=== PATIENT | female | born 1930 | race Caucasian/White ===

== ENCOUNTER → 2016-07-24 | Outpatient (CLI) | payer OTHER, MEDICARE ==
[~2016-07-24] MED LIST: ASPIRIN E.C.81 M1 PO; Allegra PO; BENICAR20 MG PO; CELEBREX200 MG PO; LANTUS 3 M100 UNITS/ SC; NOVOLOG PE100 UNITS/ SC; Norvasc PO; Pravachol PO; TRILIPIX135 MG PO; Tylenol Arthritis Ex PO; XALATAN 0.50 DROP/2. BOTH EYES
== END | disposition home or self-care (01) ==
DX: R26.2 Difficulty in walking, not elsewhere classified (principal); M25.561 Pain in right knee; M25.661 Stiffness of right knee, not elsewhere classified; M62.81 Muscle weakness (generalized)
CPT/HCPCS: 97110 GP; 97150 GO; 97161 GP; 97165 GO; G8978 GP; G8979 GP; G8980 GP; G8987 GO; G8988 GO; G8989 GO

== ENCOUNTER 2017-02-17 22:02 | Inpatient (IN) | payer OTHER, MEDICARE ==
[~2017-02-17] VITALS: Ht 157.5 cm; Wt 84.6 kg
[~2017-02-17 22:02] MED LIST changes: +AMBIEN10 MG PO; +CYMBALTA30 MG PO; +CYTOTEC200 MCG PO; +DITROPAN5 MG PO; -LANTUS 3 M100 UNITS/ SC; +LASIX20 MG PO; +LEVEMIR100 UNIT/2 SC; +LEVO-T25 MCG PO; +LYRICA75 MG PO; +PRAVACHOL80 MG PO; +SYSTANE 0.3-0.1 EACH BOTH EYES; +VOLTAREN50 MG PO; +XANAX0.5 MG PO
[2017-02-18 07:58] LABS: POINT-OF-CARE METER ID UU14174212
[2017-02-18 08:16] VITALS: BP 184/89
[2017-02-18 11:35] LABS: POINT-OF-CARE METER ID UU13113675
[2017-02-18 12:06] LABS: HEMATOCRIT 35.2 % (36.0-46.0); MCH 27.7 PG (29.0-34.0); MCHC 32.7 G/DL (30.0-36.0); MCV 84.8 FL (83-99); MEAN PLAT.VOLUME 11.3 uM^3 (9.5-12.4); PLATELET COUNT 218 K/uL (156-360); RBC DIS.WIDTH-CV 13.6 % (11.8-14.6); RBC DIS.WIDTH-SD 42.4 % (39-53); RED BLOOD COUNT 4.15 M/uL (3.80-5.20)
[2017-02-18 14:13] LABS: POINT-OF-CARE METER ID UU14188577
[2017-02-18 14:41] VITALS: BP 155/97
[2017-02-18 15:50] VITALS: BP 154/79
[2017-02-18 16:16] LABS: POINT-OF-CARE METER ID UU14188577
[2017-02-18 19:38] VITALS: BP 164/72
[2017-02-18 21:33] LABS: POINT-OF-CARE METER ID UU14188577
[2017-02-18 23:22] VITALS: BP 149/68
[2017-02-19 05:15] VITALS: BP 136/76
[2017-02-19 06:30] LABS: POINT-OF-CARE METER ID UU14149397
[2017-02-19 07:09] LABS: HEMATOCRIT 33.6 % (36.0-46.0)
[2017-02-19 07:25] LABS: ANION GAP 12 MEQ/L (2-14); CHLORIDE 100 MEQ/L (99-109); POTASSIUM 3.5 MEQ/L (3.7-5.4); SAMPLE HEMOLYSIS CHECK 0; SAMPLE ICTERIC CHECK 0; SAMPLE LIPEMIA CHECK 0; SODIUM 136 MEQ/L (136-147)
[2017-02-19 07:30] VITALS: BP 148/75
[2017-02-19 07:31] LABS: GFR ESTIMATE (CALCULATED) 41 mL/min/; GLUCOSE 243 mg/dL (70-99); UREA NITROGEN (BUN) 38 mg/dL (9-23)
[2017-02-19 11:38] LABS: POINT-OF-CARE METER ID UU14208753
[2017-02-19 15:45] VITALS: BP 162/92
[2017-02-19 16:30] LABS: POINT-OF-CARE METER ID UU14208753
[2017-02-19 21:21] LABS: POINT-OF-CARE METER ID UU14208753
[2017-02-19 23:28] VITALS: BP 148/89
[2017-02-20 06:36] LABS: MCV 83.8 FL (83-99)
[2017-02-20 06:43] LABS: POINT-OF-CARE METER ID UU14149397
[2017-02-20 08:11] VITALS: BP 192/86
[2017-02-20 11:25] LABS: POINT-OF-CARE METER ID UU14208753
[2017-02-20 15:34] VITALS: BP 167/74
[2017-02-20 16:30] LABS: POINT-OF-CARE METER ID UU14149397
[2017-02-20 21:29] LABS: POINT-OF-CARE METER ID UU14149397
[2017-02-20 23:49] VITALS: BP 176/83
[2017-02-21 06:23] LABS: POINT-OF-CARE METER ID UU14149397
[2017-02-21 07:58] VITALS: BP 198/89
[2017-02-21] MEDS ORDERED: LOVENOX40 MG/0.4 SC (07:58)
[2017-02-21] MEDS ORDERED: SENNA PLUS TAB1 EACH PO (07:58)
[2017-02-21] MEDS ORDERED: HYDROCODON-ACE1 EAC7 PO (07:58)
[2017-02-21 10:04] VITALS: BP 158/74
[2017-02-21 10:44] LABS: POINT-OF-CARE METER ID UU14188577
[2017-02-21 11:49] LABS: POINT-OF-CARE METER ID UU14188577
== END 2017-02-21 15:54 | DRG 470 ==
LOC: ENRESERV 22:02 → 2SOUTH 02-18 07:10 → 3EAST 02-18 07:10 → 2SOUTH 02-18 10:30 → ENRESERV 02-18 12:06 → 3EAST 02-18 13:16 → 2SOUTH 02-18 15:52 → 3EAST 02-21 15:54
PROVIDERS: Orthopaedic Surgery
PROC: 0SRC0J9 Replacement of Right Knee Joint with Synthetic Substitute, Cemented, Open Approach (ICD-10-PCS; principal; 2017-02-18)
DX: M17.11 Unilateral primary osteoarthritis, right knee (principal); I10 Essential (primary) hypertension; E11.9 Type 2 diabetes mellitus without complications; E03.9 Hypothyroidism, unspecified; E78.00 Pure hypercholesterolemia, unspecified; Z79.4 Long term (current) use of insulin
CPT/HCPCS: 71010; 73560; 80048; 81003; 82948; 85014; 85018; 85027; 90686; 94760; 94799; 97530 GP; C1713; J0360; J0690; J1170; J1650; J1815; J2250; J2405; J3010; J7050; Q0175

== ENCOUNTER 2017-10-21 11:27 | Inpatient (IN) | payer OTHER, MEDICARE ==
[~2017-10-21] VITALS: Ht 162.6 cm; Wt 79.2 kg
[~2017-10-21 11:27] MED LIST changes: +HYDROCODON-ACE1 EAC7 PO; +LOVENOX40 MG/0.4 SC; +SENNA PLUS TAB1 EACH PO
[2017-10-21 12:18] LABS: HEMOGLOBIN 10.4 G/DL (11.9-15.5); MCHC 33.5 G/DL (30.0-36.0); MCV 83.3 FL (83-99); PLATELET COUNT 243 K/uL (156-360); RBC DIS.WIDTH-CV 16.2 % (11.8-14.6); RBC DIS.WIDTH-SD 49.4 % (39-53); RED BLOOD COUNT 3.72 M/uL (3.80-5.20); WHITE BLOOD COUNT 8.6 K/uL (4.1-10.2)
[2017-10-21 12:29] LABS: CHLORIDE 105 mEq/L (99-109); POTASSIUM 4.2 mEq/L (3.7-5.4); SODIUM 136 mEq/L (136-147)
[2017-10-21 12:30] LABS: GLUCOSE 279 mg/dL (70-99)
[2017-10-21 12:34] LABS: CREATININE 1.5 mg/dL (0.6-1.3); GFR ESTIMATE (CALCULATED) 35 mL/min/
[2017-10-21 12:35] LABS: UREA NITROGEN (BUN) 38 mg/dL (9-23)
[2017-10-21 12:40] LABS: TROP-I INTERPRETATION NEGATIVE
[2017-10-21 15:23] LABS: THYROTROPIN (TSH) 3.5 MIU/L (0.4-5.5)
[2017-10-21 15:59] LABS: TROP-I INTERPRETATION NEGATIVE; TROPONIN-I 0.18 ng/mL (0.0-0.30)
[2017-10-21] MEDS ORDERED: TRAMADOL HCL50 MG PO (16:17)
[2017-10-21] MEDS ORDERED: ERGOCALCIF50000 UNIT PO (16:17)
[2017-10-21] MEDS ORDERED: PREDNISONE5 MG PO (16:18)
[2017-10-21 16:30] VITALS: BP 185/91
[2017-10-21 19:09] VITALS: BP 160/70
[2017-10-21 19:34] LABS: APPEARANCE CLEAR ((CLEAR)); BILIRUBIN NEGATIVE; BLOOD SMALL; COLOR STRAW ((YELLOW)); GLUCOSE (STRIP) 50; KETONES NEGATIVE; LEUKOCYTES NEGATIVE; NITRITE NEGATIVE; PROTEIN (STRIP) 100; SPECIFIC GRAVITY 1.006 (1.000-1.030); UROBILINOGEN 0.2 MG/DL (0.2-1.0)
[2017-10-21 20:05] LABS: BACTERIA RARE /HPF; EPITHELIAL CELLS RARE /HPF; MUCUS TRACE /LPF; UCUL ADDED? NO; WHITE BLOOD CELLS 0-5 /HPF (0-5)
[2017-10-21 23:07] VITALS: BP 150/70
[2017-10-22 04:45] VITALS: BP 149/90
[2017-10-22 07:06] LABS: HEMATOCRIT 31.1 % (36.0-46.0); MCH 26.7 PG (29.0-34.0); MCHC 32.2 G/DL (30.0-36.0); MCV 82.9 FL (83-99); PLATELET COUNT 266 K/uL (156-360); RBC DIS.WIDTH-CV 16.2 % (11.8-14.6); RBC DIS.WIDTH-SD 49.8 % (39-53); RED BLOOD COUNT 3.75 M/uL (3.80-5.20); WHITE BLOOD COUNT 8.5 K/uL (4.1-10.2)
[2017-10-22 07:26] LABS: CHLORIDE 102 MEQ/L (99-109); CREATININE 1.4 MG/DL (0.6-1.3); GFR ESTIMATE (CALCULATED) 38 mL/min/; POTASSIUM 3.9 MEQ/L (3.7-5.4); SODIUM 137 MEQ/L (136-147); UREA NITROGEN (BUN) 36 mg/dL (9-23)
[2017-10-22 07:28] LABS: GLUCOSE 74 mg/dL (70-99)
[2017-10-22 07:32] LABS: TROP-I INTERPRETATION NEGATIVE; TROPONIN-I 0.17 ng/mL (0.0-0.30)
[2017-10-22 08:28] VITALS: BP 151/84
[2017-10-22] MEDS ORDERED: ELIQUIS5 MG PO (08:41)
[2017-10-22 09:55] LABS: HEMOGLOBIN A1c (GLYCOHEMOGLOB) 8.5 % (Below 5.7)
[2017-10-22 11:25] VITALS: BP 141/76
[2017-10-22] MEDS ORDERED: LOSARTAN POTAS100 MG PO (16:36)
[2017-10-22] MEDS ORDERED: FUROSEMIDE20 MG PO (16:37)
[2017-10-22] MEDS ORDERED: AMLODIPINE BESYL5 MG PO (16:37)
== END 2017-10-22 17:18 | disposition home or self-care (01) | DRG 308 ==
LOC: EME 11:27 → EDOF 13:56 → 4EAST 13:56 → ENRESERV 14:02 → 4EAST 16:20
PROVIDERS: Internal Medicine
DX: I48.91 Unspecified atrial fibrillation (principal); I11.0 Hypertensive heart disease with heart failure; I50.33 Acute on chronic diastolic (congestive) heart failure; E78.5 Hyperlipidemia, unspecified; D64.9 Anemia, unspecified; I73.9 Peripheral vascular disease, unspecified; E11.9 Type 2 diabetes mellitus without complications; E03.9 Hypothyroidism, unspecified; Z96.651 Presence of right artificial knee joint; Z79.4 Long term (current) use of insulin; Z87.442 Personal history of urinary calculi; Z79.899 Other long term (current) drug therapy
CPT/HCPCS: 70490; 71046; 80048; 81003; 82948; 83036; 83880; 84443; 84484; 85027; 93005; 93306; 94640; 94799; 99281; 99285; J1815; J1940; J7512